=== PATIENT | male | born 1940 | race Caucasian/White ===

== ENCOUNTER 2017-09-10 12:43 | Emergency (ER) | payer MEDICARE, BC ==
[~2017-09-10] VITALS: Ht 177.8 cm; Wt 96.4 kg
[2017-09-10 12:49] VITALS: TEMP 98
[2017-09-10] MEDS ORDERED: XARELTO15 MG PO (13:01)
[2017-09-10] MEDS ORDERED: PROAMATINE 5MG T5 MG PO (13:01)
[2017-09-10] MEDS ORDERED: COZAAR 25MG25 MG/TAB PO (13:02)
[2017-09-10] MEDS ORDERED: ONE DAILY1 TA1 PO (13:02)
[2017-09-10] MEDS ORDERED: PEPCID40 MG PO (13:03)
[2017-09-10] MEDS ORDERED: SINGULAIR 110 MG/TAB PO (13:03)
[2017-09-10] MEDS ORDERED: FLOMAX 0.40.4 MG/CAP PO (13:04)
[2017-09-10] MEDS ORDERED: PROSCAR 5MG5 MG PO (13:04)
[2017-09-10] MEDS ORDERED: ZYRTEC 10MG10 MG PO (13:05)
[2017-09-10] MEDS ORDERED: ZOCOR 20MG20 MG PO (13:05)
[2017-09-10] MEDS ORDERED: PROAIR HFA0.09 MG/AC IH (13:05)
[2017-09-10] MEDS ORDERED: ATROVENT INHALE14 GM IH (13:06)
[2017-09-10] MEDS ORDERED: DULERA1 AR1 IH (13:06)
[2017-09-10] MEDS ORDERED: FLONASE NASAL S16 GM NS (13:10)
[2017-09-10] MEDS ORDERED: CALCIUM ANTAC1000 M2 PO (13:11)
[2017-09-10 14:21] LABS: BASO % 0.1 % (0.0-2.0); EOS % 0.4 % (0-4.0); GRAN # 5.7 (1.4-6.5); GRAN % 80.5 % (42.2-75.2); LYMPH # 0.8 (1.2-3.4); LYMPH % 11.3 % (20.0-51.0); MEAN CELL VOLUME 84 fl (80.0-100.0); MEAN CORPUSCULAR HGB CONC 31 g/dl (33.0-37.0); MEAN PLATELET VOLUME 10.4 fl (7.4-10.4); MONO # 0.5 (0.1-0.6); MONO % 7.1 % (1.7-9.3); PLATELET COUNT 133 K/mm3 (130-400); RED BLOOD COUNT 3.77 M/mm3 (4.20-5.60); REDCELL DISTRIBUTION WIDTH-CV 15.2 % (11.5-14.5); WHITE BLOOD COUNT 7.1 K/mm3 (4.8-10.8)
[2017-09-10 14:25] LABS: HEMATOCRIT 31.5 % (42.0-52.0); HEMOGLOBIN 9.7 g/dl (13.5-18.0); MEAN CORPUSCULAR HEMOGLOBIN 26 pg (27.0-31.0)
[2017-09-10 14:29] LABS: INR 1.5 (0.8-3.0); PROTHROMBIN TIME 16.6 SECONDS (9.7-12.8)
[2017-09-10 14:31] LABS: PARTIAL THROMBOPLASTIN TIME 30.8 SECONDS (26.0-37.0)
[2017-09-10 14:44] LABS: ADJUSTED CALCIUM 9.7 mg/dL (8.4-10.2); ALBUMIN 3.2 gm/dL (3.5-5.0); BILIRUBIN,TOTAL 0.4 mg/dL (0.0-1.0); CALCIUM 9.1 mg/dL (8.4-10.2); CREATININE, serum 1.57 mg/dL (0.66-1.25); MAGNESIUM 1.8 mg/dL (1.6-2.3); PHOSPHOROUS 3.5 mg/dL (2.5-4.5); POTASSIUM 4.7 mmol/L (3.4-5.0); TOTAL PROTEIN 5.9 gm/dL (6.4-8.2)
[2017-09-10 14:56] LABS: TROPONIN-I 0.033 ng/mL (0.000-0.034)
[2017-09-10 15:25] LABS: ADJUSTED CALCIUM 9.5 mg/dL (8.4-10.2); ALBUMIN 3.7 gm/dL (3.5-5.0); BILIRUBIN,TOTAL 0.5 mg/dL (0.0-1.0); CALCIUM 9.3 mg/dL (8.4-10.2); CREATININE, serum 1.58 mg/dL (0.66-1.25); POTASSIUM 4.6 mmol/L (3.4-5.0); TOTAL PROTEIN 6.6 gm/dL (6.4-8.2)
[2017-09-10 17:01] LABS: PH 5 (5-8); SQUAMOUS EPITHELIAL None Seen /hpf; URINE APPEARANCE Hazy; URINE BACTERIA None Seen /hpf; URINE BILIRUBIN Negative (NEGATIVE); URINE BLOOD Negative (NEGATIVE); URINE COLOR Yellow; URINE GLUCOSE Negative (NEGATIVE); URINE KETONE Negative (NEGATIVE); URINE RBC 0-2 /hpf; URINE UROBILINOGEN Negative (NEGATIVE); URINE WBC 0-2 /hpf
[2017-09-10 17:45] VITALS: BP 147/56; PULSE 85
== END 2017-09-10 18:33 | disposition home or self-care (01) ==
LOC: COL.ER 12:43
PROVIDERS: Emergency Medicine
DX: R55 Syncope and collapse (principal); D64.9 Anemia, unspecified; I10 Essential (primary) hypertension; I48.91 Unspecified atrial fibrillation; Z79.01 Long term (current) use of anticoagulants
CPT/HCPCS: J2405; J7030